=== PATIENT | male | born 1975 | race Caucasian/White ===

== ENCOUNTER → 2020-01-29 | Day surgery (SDC) | payer OTHER ==
[~2020-01-29] MED LIST: ACETAMINOPHEN 1000 MG/100 ML IV ONE; ALEVE220 M1 PO; CEFAZOLIN SOD 1 GM VIAL ONE; CEFAZOLIN SOD 1 GM/NS 50ML 50 ML IV ONE; CYCLOBENZAPRINE5 MG PO; DEXAMETHASONE SOD PHOS INJ 4 MG/ML VIAL ONE; EPINEPHRINE HCL 1:1000 1ML 1 MG/ML AMP ONE; FENTANYL CITRATE/PF 100MCG/2 ML INJ ONE; GLYCOPYRROLATE INJ 0.2 MG/ML VIAL ONE; KETOROLAC TROMETHAMINE 30 MG/ML VIAL ONE; LIDOCAINE 2%/ EPINEPHRINE 20ML MDV ONE; LIDOCAINE HCL 2% JELLY 5 ML TUBE ONE; LIDOCAINE HCL 2% LOCAL INJ 5 ML SDV VIAL INJ ONE; METOCLOPRAMIDE HCL 10 MG/2ML VIAL ONE; MIDAZOLAM HCL 2 MG/2 ML VIAL ONE; NEOSTIGMINE 1 MG/ML 10ML VIAL ONE; ONDANSETRON HCL INJ 2MG/ML 2ML 2 MG/ML VIAL ONE; PROPOFOL IV EMULSION 10 MG/ML 20 ML VIAL ONE; ROCURONIUM BROMIDE 10 MG/ML 5ML VIAL IV ONE; ROPIVACAINE 0.5% 5 MG/ML 30 ML SDV ONE; SEVOFLURANE INHAL SOLN 250 ML PEN BTL ONE; TYLENOL WITH C1 EACH PO; ZANTAC PO
--- NOTE | 2020-01-29 09:08 | Operative Report ---
DATE OF PROCEDURE: 01/29/2020 SURGEON: Garth Esparza MD ACCOUNT SUPPORT REP: Griffin Alvarez, certified PA. PREOPERATIVE DIAGNOSIS: Right shoulder rotator cuff tear. POSTOPERATIVE DIAGNOSIS: Right shoulder rotator cuff tear. PROCEDURES: Right shoulder arthroscopy, subacromial decompression and bursectomy, rotator cuff repair. INDICATIONS: The patient is a 44-year-old gentleman, who has clinic signs and symptoms consistent with a large rotator cuff tear in his right shoulder. This occurred after a traumatic event. The risks and benefits of surgical repair have been explained. All of his questions have been answered. The lengthy recovery and the importance of physical therapy have been stressed. He states he understands and wishes to proceed. PROCEDURE IN DETAIL: The patient was brought to the operating room and placed under general anesthetic. He received a regional block and prophylactic antibiotics in the holding area. He was positioned in the beach chair position on the shoulder table. His right upper extremity was prepped and draped in a sterile manner. A preoperative time-out was performed. He was noted to have full passive elevation and abduction. A standard posterior arthroscopy portal was established. The shoulder was insufflated with sterile saline and systematically inspected. The glenohumeral surfaces and labrum were well preserved. The biceps tendon was pristine and stable at the supraglenoid tubercle. There was a 3 cm rotator cuff tear. A lateral working portal was established. A 5.5 mm electro blade shaver was introduced into the shoulder joint. The articular surface of the rotator cuff was debrided back to more stable and healthy tissue. The scope was moved to the subacromial space. An aggressive subacromial bursectomy was performed. A gentle bone decompression of the anterior third of the acromion was removed. The greater tuberosity was decorticated. An [employer] Double-Row SpeedBridge construct was used to repair the rotator cuff tendon. [employer] holes were placed at the articular margin approximately 2 cm apart. Bioabsorbable suture anchors preloaded with FiberTape stitches were seated into each supervising airplane pilot hole. These were passed using an [employer] Scorpion Suture Passer in anterior and posterior portions of the rotator cuff. An anterior working portal and another posterior portal were used for suture relay and appropriate positioning of the posterior supervising airplane pilot hole. The FiberTape stitches were then anchored down to bone using secondary bioabsorbable suture anchors in the superior lateral humeral cortex. Excellent apposition of the rotator cuff down to bleeding cancellous bone was accomplished. The tendon repair was probed and noted to have good tension and tendon to bone apposition. The arthroscopic instruments were then removed. All of the portal incisions were closed with nylon stitches. A sterile bandage was applied. He was placed into an UltraSling. Estimated blood loss was less than 20 mL. At the end of the procedure, all needle and sponge counts were correct. Garth Esparza MD DR/DOMINGUEZ /[id number]
[2020-01-29 09:40] VITALS: BP 134/88
== END | disposition home or self-care (01) ==
LOC: OR 06:18
PROVIDERS: ATTEND Specialist
DX: S46.021A Laceration of muscle(s) and tendon(s) of the rotator cuff of right shoulder, initial encounter (principal); F17.210 Nicotine dependence, cigarettes, uncomplicated; W17.89XA Other fall from one level to another, initial encounter; Y93.89 Activity, other specified; Y99.0 Civilian activity done for income or pay; Z01.810 Encounter for preprocedural cardiovascular examination; Z01.812 Encounter for preprocedural laboratory examination; Z11.59 Encounter for screening for other viral diseases; Z68.37 Body mass index [BMI] 37.0-37.9, adult; Z96.642 Presence of left artificial hip joint
CPT/HCPCS: 29827; 87635; 93005; C1713 ×3; J0131; J0171; J0690 ×2; J1100; J1885; J2001 ×3; J2405; J2704; J2710; J2765; J2795; J2250; J3010

== ENCOUNTER → 2020-03-14 | Outpatient (RCR) | payer OTHER ==
[~2020-03-14] MED LIST changes: -ACETAMINOPHEN 1000 MG/100 ML IV ONE; -CEFAZOLIN SOD 1 GM VIAL ONE; -CEFAZOLIN SOD 1 GM/NS 50ML 50 ML IV ONE; -DEXAMETHASONE SOD PHOS INJ 4 MG/ML VIAL ONE; -EPINEPHRINE HCL 1:1000 1ML 1 MG/ML AMP ONE; -FENTANYL CITRATE/PF 100MCG/2 ML INJ ONE; -GLYCOPYRROLATE INJ 0.2 MG/ML VIAL ONE; -KETOROLAC TROMETHAMINE 30 MG/ML VIAL ONE; -LIDOCAINE 2%/ EPINEPHRINE 20ML MDV ONE; -LIDOCAINE HCL 2% JELLY 5 ML TUBE ONE; -LIDOCAINE HCL 2% LOCAL INJ 5 ML SDV VIAL INJ ONE; -METOCLOPRAMIDE HCL 10 MG/2ML VIAL ONE; -MIDAZOLAM HCL 2 MG/2 ML VIAL ONE; -NEOSTIGMINE 1 MG/ML 10ML VIAL ONE; -ONDANSETRON HCL INJ 2MG/ML 2ML 2 MG/ML VIAL ONE; -PROPOFOL IV EMULSION 10 MG/ML 20 ML VIAL ONE; -ROCURONIUM BROMIDE 10 MG/ML 5ML VIAL IV ONE; -ROPIVACAINE 0.5% 5 MG/ML 30 ML SDV ONE; -SEVOFLURANE INHAL SOLN 250 ML PEN BTL ONE
== END ==
LOC: PT 09:13
PROVIDERS: ATTEND Specialist
DX: M75.101 Unspecified rotator cuff tear or rupture of right shoulder, not specified as traumatic (principal); G89.18 Other acute postprocedural pain; M25.511 Pain in right shoulder; M25.611 Stiffness of right shoulder, not elsewhere classified

== ENCOUNTER → 2020-04-14 | Outpatient (RCR) | payer OTHER | LOC: PT 03-19 10:10 | PROVIDERS: ATTEND Specialist | DX: G89.18 Other acute postprocedural pain (principal); M75.101 Unspecified rotator cuff tear or rupture of right shoulder, not specified as traumatic; M25.511 Pain in right shoulder; M62.81 Muscle weakness (generalized); M25.611 Stiffness of right shoulder, not elsewhere classified | CPT/HCPCS: 97139 ==

== ENCOUNTER 2020-05-09 15:00 | Outpatient (RCR) | payer OTHER | END 2020-05-14 | LOC: PT 15:00 | PROVIDERS: ATTEND Specialist | DX: G89.18 Other acute postprocedural pain (principal); M75.101 Unspecified rotator cuff tear or rupture of right shoulder, not specified as traumatic; M25.511 Pain in right shoulder; M62.81 Muscle weakness (generalized) | CPT/HCPCS: 97139 ==

== ENCOUNTER 2020-06-02 15:00 | Outpatient (RCR) | payer OTHER | END 2020-06-14 | LOC: PT 15:00 | PROVIDERS: ATTEND Specialist | DX: M25.511 Pain in right shoulder (principal); G89.18 Other acute postprocedural pain; M62.81 Muscle weakness (generalized) ==

== ENCOUNTER 2022-02-11 08:48 | Emergency (ER) | payer OTHER ==
[~2022-02-11] VITALS: Ht 177.8 cm; Wt 122.5 kg
[2022-02-11] MEDS ORDERED: KETOROLAC TROMETHAMINE 30 MG/ML VIAL IV STA (09:13)
[2022-02-11] MEDS ORDERED: SODIUM CHLORIDE 0.9% 1000ML 1,000 ML IV STA (09:13)
[2022-02-11] MEDS ORDERED: DEXAMETHASONE SOD PHOS 10 MG/1 ML VIAL IV ONE (09:15)
[2022-02-11 09:29] LABS: BASOPHILS # (AUTO) 0.1 (0.0-0.1); BASOPHILS % 0.4 % (0.0-1.0); EOSINOPHILS # (AUTO) 0.1 (0.0-0.4); EOSINOPHILS % 0.8 % (0.0-6.0); HEMATOCRIT 49.3 % (38.2-49.6); HEMOGLOBIN 16.2 g/dL (14.0-18.0); LYMPHOCYTES # (AUTO) 2.7 (1.0-3.2); LYMPHOCYTES % 18.5 % (18.0-39.1); MEAN CORPUSCULAR HEMOGLOBIN 30.2 pg (28-32); MEAN CORPUSCULAR HGB CONC 32.9 g/dL (31-35); MONOCYTES % 7.1 % (4.4-11.3); NEUTROPHILS # (AUTO) 10.6 (2.1-6.9); NEUTROPHILS % 72.9 % (38.7-80.0); PLATELET COUNT 328 x10e3/uL (140-360); RED BLOOD COUNT 5.36 x10e6/uL (4.3-5.7)
[2022-02-11 09:52] LABS: ALBUMIN 3.6 g/dL (3.5-5.0); ALBUMIN/GLOBULIN RATIO 0.8 (0.8-2.0); ANION GAP 14.7 mmol/L (8-16); CALCIUM 8.8 mg/dL (8.4-10.2); CREATININE, SERUM 0.81 mg/dL (0.72-1.25); POTASSIUM 3.7 mmol/L (3.5-5.1)
[2022-02-11] MEDS ORDERED: IOPAMIDOL 370 MG/ML 100 ML INFUS..BTL INJ ONE (11:04)
[2022-02-11 11:18] LABS: CREATINE KINASE 171 IU/L (30-200)
[2022-02-11 14:32] VITALS: BP 141/85
== END 2022-02-11 14:38 | disposition other institution (70) ==
LOC: ER 09:00
DX: J36 Peritonsillar abscess (principal); Z20.822 Contact with and (suspected) exposure to COVID-19
CPT/HCPCS: 36415; 70491; 71045; 80053; 82550; 82553; 83880; 84484; 85025; 99284; J0696; J1100; J1885; J7030; Q9967; U0002

== ENCOUNTER → 2022-03-03 | Outpatient (CLI) | payer OTHER | LOC: CT 12:22 | PROVIDERS: ATTEND Urology | DX: N20.0 Calculus of kidney (principal) | CPT/HCPCS: 74176 ==

== ENCOUNTER → 2022-11-05 | Day surgery (SDC) | payer BC, OTHER ==
[2022-11-03 15:17] LABS: BASOPHILS # (AUTO) 0.1 (0.0-0.1); BASOPHILS % 0.8 % (0.0-1.0); EOSINOPHILS # (AUTO) 0.2 (0.0-0.4); EOSINOPHILS % 1.8 % (0.0-6.0); HEMATOCRIT 51.8 % (38.2-49.6); HEMOGLOBIN 16.6 g/dL (14.0-18.0); LYMPHOCYTES # (AUTO) 3.7 (1.0-3.2); LYMPHOCYTES % 30.3 % (18.0-39.1); MEAN CORPUSCULAR HEMOGLOBIN 29.2 pg (28-32); MEAN CORPUSCULAR VOLUME 91.2 fL (81-99); MONOCYTES # (AUTO) 0.8 (0.2-0.8); MONOCYTES % 6.2 % (4.4-11.3); NEUTROPHILS # (AUTO) 7.3 (2.1-6.9); NEUTROPHILS % 60.6 % (38.7-80.0); PLATELET COUNT 329 x10e3/uL (140-360); RED BLOOD COUNT 5.68 x10e6/uL (4.3-5.7)
[2022-11-03 15:34] LABS: ANION GAP 14.5 mmol/L (8-16); CALCIUM 9.4 mg/dL (8.4-10.2); CREATININE, SERUM 0.84 mg/dL (0.72-1.25); POTASSIUM 4.5 mmol/L (3.5-5.1)
[~2022-11-05] MED LIST changes: +BACITRACIN ZINC 15 GM OINT ONE; +BUPIVACAINE 0.25% 30ML SDV ONE; +BUPIVACAINE HCL 0.5% 10ML MPF VIAL INJ ONE; +CEFAZOLIN SODIUM 2 GM ONE; +DEXAMETHASONE SOD PHOS INJ 4 MG/ML SDV ONE; +FENTANYL CITRATE/PF 100MCG/2 ML INJ ONE; +KETOROLAC TROMETHAMINE 30 MG/ML VIAL ONE; +LACTATED RINGER'S 1,000 ML ONE; +LIDOCAINE HCL 2% LOCAL 20 ML VIAL ONE; +LIDOCAINE HCL 2% LOCAL INJ 5 ML SDV VIAL INJ ONE; +MIDAZOLAM HCL 2 MG/2 ML VIAL ONE; +ONDANSETRON HCL INJ 2MG/ML 2ML 2 MG/ML VIAL ONE; +OZEMPIC0.25 MG/0. SC; +POVIDONE IODINE 0.05% 0.05 % ML PO ONE; +PROPOFOL IV EMULSION 10 MG/ML 20 ML VIAL ONE; +SEVOFLURANE INHAL SOLN 250 ML PEN BTL ONE
[2022-11-05 11:40] VITALS: BP 150/98
== END | disposition home or self-care (01) ==
LOC: OR 07:06
PROVIDERS: ATTEND Urology
DX: N47.1 Phimosis (principal); N48.0 Leukoplakia of penis; E66.01 Morbid (severe) obesity due to excess calories; E11.9 Type 2 diabetes mellitus without complications; F17.200 Nicotine dependence, unspecified, uncomplicated; Z79.85 Long-term (current) use of injectable non-insulin antidiabetic drugs; Z79.1 Long term (current) use of non-steroidal anti-inflammatories (NSAID)
CPT/HCPCS: 36415 ×2; 54163; 71046; 80048; 82948; 85025; 88304; 93005; J1100; J1885; J2001 ×2; J2250; J2405; J2704; J3010; J7121